=== PATIENT | female | born 1975 | race Caucasian/White ===

== ENCOUNTER 2016-04-20 09:37 | Inpatient (IN) | payer OTHER ==
[~2016-04-20 09:37] MED LIST: Buffered Lidocaine 1% SYRIN* 3 ML/SYR SYRINGE INTRADERM ONE
[2016-04-20] MEDS ORDERED: Lidocaine 2% PF* 10 ML AMP ONE (09:50)
[2016-04-20] MEDS ORDERED: Clindamycin 900 MG IVPREMIX(* 900 MG/50 ML SDV IV ONE (09:54)
[2016-04-20 10:26] LABS: UR Preg Kit Lot# 6060104
[2016-04-20 10:27] LABS: Manual Entry Verification AS; UR Preg Internal Control QC Line Present
[2016-04-20] MEDS ORDERED: Insulin REGULAR(*) 1 UNITS UNIT ONE ×2 (10:42→13:01)
[2016-04-20] MEDS ORDERED: Bupivacaine 0.5% SDV PF* 30 ML VIAL ONE (11:43)
[2016-04-20] MEDS ORDERED: Propofol* 10 MG/ML 20 ML BTL IV PUSH ONE (11:51)
[2016-04-20] MEDS ORDERED: fentaNYL* 50 MCG/ML 2 ML VIAL (100 MCG VIAL) ONE (11:51)
[2016-04-20] MEDS ORDERED: Lidocaine 2% PF* 5 ML VIAL ONE (11:51)
[2016-04-20] MEDS ORDERED: Ketorolac INJ* 30 MG/ML 1 ML VIAL IV PRN (12:13)
[2016-04-20] MEDS ORDERED: DiMENhydriNATE IV* 50 MG/ML VIAL IV PUSH PRN (12:13)
[2016-04-20] MEDS ORDERED: fentaNYL* 50 MCG/ML 2 ML VIAL (100 MCG VIAL) IV PRN (12:13)
[2016-04-20] MEDS ORDERED: diPHENhydraMINE IV* 50 MG/ML 1 ml VIAL (BENADRYL) IV PRN (12:48)
[2016-04-20] MEDS ORDERED: Acetaminophen TAB* 325 MG PO PRN (12:48)
[2016-04-20] MEDS ORDERED: traZODone TAB* 50 MG TAB PO PRN (12:48)
[2016-04-20] MEDS ORDERED: Ondansetron INJ* 2 MG/ML VIAL IV PRN (12:48)
[2016-04-20] MEDS ORDERED: clonazePAM TAB(*) 1 MG PO PRN (12:56)
[2016-04-20] MEDS ORDERED: Vancomycin(*) 0 MG in NS 0.9% 250 ML* 250 ML IVPB SCH (13:00)
[2016-04-20] MEDS ORDERED: Enoxaparin(*) 40 MG/0.4 ML SYR SUBCUT SCH (13:00)
[2016-04-20] MEDS ORDERED: Dextrose 50% Syringe 50 ML* 25 GM/50 ML SYRINGE IV PUSH PRN (13:19)
[2016-04-20] MEDS ORDERED: Nicotine Inhaler* 10 MG AMP INH PRN (14:09)
[2016-04-20] MEDS ORDERED: Vancomycin(*) 1,500 MG in NS 0.9% 250 ML* 250 ML IVPB ONE (15:15)
[2016-04-20] MEDS: Gabapentin CAP(*) 400 MG PO SCH ×2 (15:48→21:14)
[2016-04-20] MEDS: Morphine INJ* 2 MG/ML 1 ML SYRINGE IV PRN ×5 (15:48→23:49)
[2016-04-20] MEDS ORDERED: Mouth Piece, Nicotine* 1 EACH CARTRIDGE INH ONE (16:00)
--- NOTE | 2016-04-20 16:09 | CONS ---
CONSULTATION REPORT: DATE OF CONSULT: 04/20/16 PRIMARY CARE PROVIDER: Dr. Randolph. ATTENDING PHYSICIAN: Dr. Bolivar Ziegler (this report is being dictated by Tony Galeas NP) REQUESTING PHYSICIAN FOR CONSULTATION: Dr. Alexander. REASON FOR MEDICAL CONSULTATION: Evaluation and medical management of comorbid medical conditions. HISTORY OF PRESENT ILLNESS: I refer you to Dr. Alexander's H and P for further details. In short, Ms. Cannon is a 41-year-old female patient who sustained a right ankle fracture in October 2015, who underwent an ORIF for the fracture. Unfortunately, over 6 weeks after, she started developing cellulitis. She was treated but then she had recurrent cellulitis and wound infection. It was felt that the hardware most likely was seated and that is why she was getting recurrence of infections and it was felt by Dr. Alexander that the patient should have removal of hardware, of which she has finally elected to undergo today. The patient was brought into the OR today, underwent removal of hardware. She carries a history of diabetes, hypertension, hyperlipidemia, bipolar disorder, depression, anxiety, and we were asked to evaluate. She was evaluated in the postoperative setting. She states she is feeling well, her pain is controlled. She denies having any chest pain. She denies having any shortness of breath. Denies any nausea, vomiting, or any lightheadedness. She states that she did not take her medications this morning. She states that she feels hungry and that is really her only complaint at this point. Because of her medical complexity, we are asked to evaluate in consult. PAST MEDICAL HISTORY: Significant for, 1. Diabetes. 2. Hyperlipidemia. 3. Hypertension. 4. Bipolar. 5. Depression. 6. Anxiety. PAST SURGICAL HISTORY: She has had a right ankle ORIF. HOME MEDICATIONS: According to the preop list, include: 1. Klonopin 1 mg daily as needed. 2. Effexor 225 mg daily. 3. Crestor 10 mg daily. 4. Altace 10 mg p.o. daily. 5. Naproxen 500 mg p.o. b.i.d. as needed. 6. Glucophage 1000 mg p.o. b.i.d. 7. Advil 1000 mg 2 every 8 hours as needed. 8. Glimepiride 4 mg p.o. daily. 9. Neurontin 400 mg p.o. t.i.d. 10. Klonopin 2 mg in the morning. 11. Wellbutrin 150 mg in the morning and also with a 300 mg tablet in the morning. 12. Aspirin 81 mg daily. ALLERGIES TO MEDICATIONS: Include PENICILLIN and OXYCODONE. FAMILY HISTORY: Mother had a history of cancer, diabetes, and heart disease. Father had a history of renal cancer and diabetes. SOCIAL HISTORY: She is a pack a day smoker since the age of 14. Occasionally drinks alcohol. Surrogate decision maker is her sister. REVIEW OF SYSTEMS: There is no documented fever. She denied having any significant weight change. There was no double vision. There is no ear discharge. She denies having any rhinorrhea. There is no sore throat. No thyroid enlargement. She denied having any chest pain. There is no orthopnea. No nocturnal dyspnea. There is no abdominal pain. No nausea. No vomiting. No dysuria. No frequency. No loss of consciousness. No pruritus. No skin ulcerations. Review of 14 systems was completed, all others negative. PHYSICAL EXAMINATION: GENERAL: At this time, Ms. Cannon is a 41-year-old female patient. She is sitting in the PACU bed. She does not appear to be in any acute distress. VITAL SIGNS: Reveal a blood pressure of 139/89 with pulse of 94, respirations 20, O2 sat 98%, and temperature 97.5. HEENT: Head is atraumatic and normocephalic. Eyes; EOMs are intact. Sclerae anicteric and not pale. Throat; oral mucosa appears to be moist. No oropharyngeal erythema. NECK: Supple. LUNGS: Clear to auscultation bilaterally. No wheezes, rales, or rhonchi. HEART: Heart sounds S1 and S2. Regular rate and rhythm. No murmurs, rubs, or gallops were appreciated. ABDOMEN: Soft, flat and nontender. Bowel sounds are hypoactive. EXTREMITIES: Pulses are 2+ throughout. She is able to move all 4 extremities with the exception of the right lower extremity, as this is Jun wrapped and covered with a dressing around the right ankle. SKIN: Intact with the exception that she had an incision to the right lower extremity covered with an Jun dressing. NEUROLOGIC: She is awake, alert, and oriented x3. No gross focal deficits. LABORATORY DATA: Labs today are pending. I did not see any preop labs in the chart. I do not have any available to me, so we are waiting on getting these. She had the ankle x-ray on November 02, which shows trimalleolar fracture with medial displacement of the tibia . Old medical records reviewed. ASSESSMENT AND PLAN: Ms. Cannon is a 41-year-old female patient, coming into the orthopedic services today for removal of hardware. Hospitalist service was asked to evaluate for a consult, my recommendations at this point are: 1. Right lower extremity ankle infection with removal of hardware. I will defer the management of this to Orthopedics and Dr. Conde, who has been consulted by Ortho. 2. Diabetes. We will go ahead and put her on lispro sliding scale. Hold p.o. medications. 3. Hyperlipidemia. Continue Crestor. 4. Hypertension. Holding the ramipril for now. We may need to restart this tomorrow. Blood pressures are in the 130s, but we will hold it the first day postoperatively. 5. Bipolar disorder. Continue medications as prescribed. 6. Depression and anxiety. Continue mediations as prescribed. 7. DVT prophylaxis. Defer to the primary team. 8. Fluid, electrolytes, nutrition. Recommend a consistent carb diet. 9. Code status. Full code. TIME SPENT: Time spent on this consult was 60 minutes, of which greater than half the time was spent [id number] with the patient obtaining my history and physical; other half the time was spent going over the plan of care with the patient and implementing the plan of care. I discussed the plan of care with my attending; Dr. Ziegler; he is in agreement. TONY GALEAS NP CC: ARTIS Jason; Dr Alexander* [id number]/[facility] #: [id number] FLAKITA
[2016-04-20] MEDS ORDERED: Vancomycin per Pharmacy* NOTE FOLLOW UP PRN (16:16)
[2016-04-20 16:21] LABS: Hematocrit 38 % (35-47); Hemoglobin 12.5 g/dl (12.0-16.0); Mean Corpuscular HGB Conc 33 g/dl (31-36); Mean Corpuscular Hemoglobin 28 pg (27-31); Mean Corpuscular Volume 83 fL (80-97); Mean Platelet Volume 8 um3 (7.4-10.4); Red Blood Count 4.54 10^6/ul (4.0-5.4); Red Cell Distribution Width 14 % (10.5-15); White Blood Count 18.1 10^3/ul (3.5-10.8)
[2016-04-20 17:00] LABS: C Reactive Protein 8.48 mg/L (< 5.00); EGFR African American 132.6 (>60); EGFR Non-African American 103.1 (>60)
[2016-04-20] MEDS ORDERED: Ibuprofen TAB* 600 MG ONE (17:09)
[2016-04-20] MEDS ORDERED: HYDROmorphone TAB* 2 MG ONE (17:09)
[2016-04-20] MEDS: Atorvastatin* 20 MG TAB PO SCH (17:13)
[2016-04-20 17:17] LABS: Erythrocyte Sed Rate 38 mm/Hr (0-14)
[2016-04-20] MEDS: Insulin LISPRO* 1 UNITS UNIT SUBCUT SCH (17:26)
[2016-04-20] MEDS: metroNIDAZOLE IV 500 MG/100ML* 500 MG/100 ML BAG IVPB SCH (17:27)
[2016-04-20] MEDS: Ibuprofen TAB* 600 MG PO SCH ×2 (17:34→23:46)
[2016-04-20] MEDS ORDERED: metFORMIN* 500 MG TAB PO SCH (21:00)
[2016-04-20] MEDS: Docusate CAP* 100 MG PO SCH (21:14)
[2016-04-20] MEDS: HYDROmorphone TAB* 2 MG PO PRN (21:15)
[2016-04-20] MEDS: Vancomycin(*) 1,500 MG in NS 0.9% 250 ML* 250 ML IVPB SCH (23:52)
[2016-04-21] MEDS: HYDROmorphone TAB* 2 MG PO PRN ×4 (01:53→22:08)
[2016-04-21] MEDS: Morphine INJ* 2 MG/ML 1 ML SYRINGE IV PRN ×2 (02:16→04:36)
--- NOTE | 2016-04-21 02:19 | OP ---
DATE OF OPERATION: 04/20/16 - ROOM #339 DATE OF : 71 ATTENDING SURGEON: Rudolph Alexander MD BLOCKER POLISHING: Tamera Barron PA-C ANESTHESIOLOGIST: Rashel Flores MD ANESTHESIA: General PRE-OP DIAGNOSIS: Chronically infected right fibular plate. POST-OP DIAGNOSIS: Chronically infected right fibular plate with evidence of chronic osteomyelitis. OPERATIVE PROCEDURE: Removal of plate and debridement of right fibula. DESCRIPTION OF PROCEDURE: The patient was taken to the operating room, where we made a longitudinal incision over the distal fibular plate. There was a combination of sharp incision and electrocautery to allow visualization of all the screws. Most of the screws were loose and backed out quite easily. When the plate was removed, we noticed that there was chronic granulation tissue in all of the screw holes. These were curetted aggressively as well as the exterior portion of the fibula scraped. We used a 3 L pulsatile lavage. The hardware was sent to pathology, but also some of the bone scrapings as well as a local culture. We were able to close the wound with a single layer of Biosyn sutures. Compression dressing was applied. [id number]/[facility] #: [id number] [facility]
[2016-04-21] MEDS: Ibuprofen TAB* 600 MG PO SCH ×3 (06:08→18:11)
[2016-04-21] MEDS: metroNIDAZOLE IV 500 MG/100ML* 500 MG/100 ML BAG IVPB SCH ×3 (06:10→18:12)
[2016-04-21 06:47] LABS: Hematocrit 38 % (35-47); Hemoglobin 12.5 g/dl (12.0-16.0); Mean Corpuscular HGB Conc 33 g/dl (31-36); Mean Corpuscular Hemoglobin 28 pg (27-31); Mean Corpuscular Volume 85 fL (80-97); Mean Platelet Volume 8 um3 (7.4-10.4); Red Cell Distribution Width 14 % (10.5-15); White Blood Count 13.8 10^3/ul (3.5-10.8)
[2016-04-21 07:12] LABS: BUN/Creatinine Ratio 21.2 (8-20); Calcium 8.6 mg/dL (8.6-10.3); EGFR African American 125.7 (>60); EGFR Non-African American 97.7 (>60); Potassium 4.7 mmol/L (3.5-5.0)
[2016-04-21] MEDS ORDERED: Insulin GLARGINE(*) 1 UNITS UNIT SUBCUT ONE (07:20)
[2016-04-21] MEDS ORDERED: NS 0.9% 250 ML* 250 ML ONE (08:18)
[2016-04-21] MEDS: Venlafaxine EXT RELEASE CAP* 75 MG PO SCH (08:19)
[2016-04-21] MEDS: Enoxaparin(*) 40 MG/0.4 ML SYR SUBCUT SCH (08:19)
[2016-04-21] MEDS: clonazePAM TAB(*) 1 MG PO SCH (08:20)
[2016-04-21] MEDS: Aspirin EC Low Dose* 81 MG TAB.EC PO SCH (08:20)
[2016-04-21] MEDS: Gabapentin CAP(*) 400 MG PO SCH ×3 (08:20→20:59)
[2016-04-21] MEDS: BuPROPion XL* 150 MG TAB.XL PO SCH (08:20)
[2016-04-21] MEDS: Docusate CAP* 100 MG PO SCH ×2 (08:20→20:59)
[2016-04-21] MEDS: BuPROPion XL* 300 MG TAB.XL PO SCH (08:21)
[2016-04-21] MEDS: Vancomycin(*) 1,500 MG in NS 0.9% 250 ML* 250 ML IVPB SCH (08:35)
[2016-04-21] MEDS ORDERED: BuPROPion XL* 300 MG TAB.XL PO SCH (09:00)
[2016-04-21] MEDS ORDERED: CLONAZEPAM 2 MG PO SCH (09:00)
[2016-04-21] MEDS ORDERED: Venlafaxine ER (NF) 150 MG CAP.ER PO SCH (09:00)
[2016-04-21] MEDS ORDERED: Ramipril CAP* 10 MG PO SCH (09:00)
[2016-04-21] MEDS ORDERED: Glimepiride (NF) 2 MG TAB PO SCH (09:00)
[2016-04-21] MEDS: Insulin LISPRO* 1 UNITS UNIT SUBCUT SCH ×6 (09:20→18:12)
--- NOTE | 2016-04-21 09:51 | PN ---
Progress Note - Progress Note SOAP: Subjective: []Patient is seen OOB in chair. Pain well managed. Walked with PT this am without difficulty. Awaiting PIC line and ID consult. . Really wants to go home this afternoon if possible. Objective: [] Vital Signs Temp 97.6 F 04/21/16 07:49 Pulse 87 04/21/16 07:49 Resp 16 04/21/16 08:20 BP 114/56 04/21/16 07:49 Pulse Ox 99 04/21/16 07:49 Intake & Output 04/20/16 04/21/16 04/21/16 18:59 06:59 18:59 Intake Total 2220 3396 Output Total 1200 Balance 2220 2196 Weight 202 lb 12.8 oz Intake: IV Fluids 900 817 LR 900 817 IVPB 559 ABX - VANCOMYCIN 559 Oral 1320 2020 Output: Urine 1200 Other: Estimated Void Medium Medium # Voids 1 1 1 Laboratory Results - last 24 hr 04/20/16 04/20/16 04/20/16 09:46 10:16 10:19 WBC RBC Hgb Hct MCV MCH MCHC RDW Plt Count MPV Neut % (Auto) Lymph % (Auto) [place] % (Auto) Eos % (Auto) Baso % (Auto) Absolute Neuts (auto) Absolute Lymphs (auto) Absolute Monos (auto) Absolute Eos (auto) Absolute Basos (auto) Absolute Nucleated RBC Nucleated RBC % ESR Sodium Potassium Chloride Carbon Dioxide Anion Gap BUN Creatinine Est GFR ( Amer) Est GFR (Non-Af Amer) BUN/Creatinine Ratio Glucose POC Glucose (mg/dL) 317 H Calcium C-Reactive Protein Urine Test Negative HIV 1&2 Antibody Nonreactive 04/20/16 04/20/16 04/20/16 11:45 12:47 16:10 WBC 18.1 H RBC 4.54 Hgb 12.5 Hct 38 MCV 83 MCH 28 MCHC 33 RDW 14 Plt Count 320 MPV 8 Neut % (Auto) 64.1 Lymph % (Auto) 25.1 [place]haw % (Auto) 5.1 Eos % (Auto) 4.7 Baso % (Auto) 1.0 Absolute Neuts (auto) 11.6 H Absolute Lymphs (auto) 4.5 Absolute Monos (auto) 0.9 H Absolute Eos (auto) 0.8 H Absolute Basos (auto) 0.2 Absolute Nucleated RBC 0.03 Nucleated RBC % 0.1 ESR 38 H Sodium Potassium Chloride Carbon Dioxide Anion Gap BUN Creatinine Est GFR ( Amer) Est GFR (Non-Af Amer) BUN/Creatinine Ratio Glucose POC Glucose (mg/dL) 286 H 261 H Calcium C-Reactive Protein Urine Test HIV 1&2 Antibody 04/20/16 04/20/16 04/21/16 16:10 17:21 05:57 WBC RBC Hgb Hct MCV MCH MCHC RDW Plt Count MPV Neut % (Auto) Lymph % (Auto) [place] % (Auto) Eos % (Auto) Baso % (Auto) Absolute Neuts (auto) Absolute Lymphs (auto) Absolute Monos (auto) Absolute Eos (auto) Absolute Basos (auto) Absolute Nucleated RBC Nucleated RBC % ESR Sodium 131 L Potassium 4.7 Chloride 98 L Carbon Dioxide 28 Anion Gap 5 BUN 13 14 Creatinine 0.63 0.66 Est GFR ( Amer) 132.6 125.7 Est GFR (Non-Af Amer) 103.1 97.7 BUN/Creatinine Ratio 21.2 H Glucose 329 H POC Glucose (mg/dL) 293 H Calcium 8.6 C-Reactive Protein 8.48 H Urine Test HIV 1&2 Antibody 04/21/16 04/21/16 05:57 07:44 WBC 13.8 H RBC 4.50 Hgb 12.5 Hct 38 MCV 85 MCH 28 MCHC 33 RDW 14 Plt Count 298 MPV 8 Neut % (Auto) 53.5 Lymph % (Auto) 33.8 [place]haw % (Auto) 6.2 Eos % (Auto) 5.7 Baso % (Auto) 0.8 Absolute Neuts (auto) 7.4 Absolute Lymphs (auto) 4.7 Absolute Monos (auto) 0.9 H Absolute Eos (auto) 0.8 H Absolute Basos (auto) 0.1 Absolute Nucleated RBC 0.01 Nucleated RBC % 0 ESR Sodium Potassium Chloride Carbon Dioxide Anion Gap BUN Creatinine Est GFR ( Amer) Est GFR (Non-Af Amer) BUN/Creatinine Ratio Glucose POC Glucose (mg/dL) 329 H Calcium C-Reactive Protein Urine Test HIV 1&2 Antibody Microbiology 04/20/16 12:12 Skin and Soft Tissue MRSA/MSSA (PCR - Final Wound - Ankle Right Mrsa Negative S.aureus Positive Gram Stain - Final Right ankle dressing is C/D/I toes pink and warm, moving well neuro intact calf non tender and soft Assessment: []s/p Removal infected hardware with curretage of distal fibula right ankle POD #1 Plan: []PT/OT WBAT RLE Await PIC line Await ID consult Home when all home health issues /IV ABX are in place for discharge.
--- NOTE | 2016-04-21 12:21 | PN ---
Subjective Date of Service: 04/21/16 Interval History: Patient seen and examined at bedside. She denies fever/chills, CP, SOB, n/v. She reports adequate pain control and states, "I'm ready to get out of here." She recognizes that she still needs to see ID and have a PICC line placed. We discussed her A1c, which is 11. She states it was "around 8" last time it was checked. She does not check BG at home. She reports she used to be on Novolog and Victoza, but this was discontinued when she lost 50 lbs. We discussed the importance of glucose control, especially with an acute infection and in the post-operative period. She is from [place] but now lives in [place] and will not be able to f/u with [facility] as an outpatient. However, she is agreeable to starting Lantus insulin and following up with her PCP. She was also advised to check her BG at home and keep a record for her physician. Family History: Unchanged from Admission Social History: Unchanged from Admission Past Medical History: Unchanged from Admission Objective Active Medications: Acetaminophen (Tylenol Tab*) 650 mg PO Q4H PRN PRN Reason: PAIN OR TEMPERATURE [facility]ir[facility] Ec Low Dose*) [facility] Last Admin: 04/21/16 08:20 Dose: 81 mg Atorvastatin Calcium (Lipitor*) 20 mg PO QPM [facility] PRN Reason: Protocol Last Admin: 04/20/16 17:13 Dose: 20 mg Bupropion HCl (Wellbutrin Xl *) [facility]N Reason: Protocol Last Admin: 04/21/16 08:20 Dose: 150 mg Bupropion HCl (Bupropion Xl*) [facility] Last Admin: 04/21/16 08:21 Dose: 300 mg Clonazepam (Klonopin Tab(*)) 1 mg PO DAILY PRN PRN Reason: ANXIETY Clonazepam (Klonopin Tab(*)) [facility] Last Admin: 04/21/16 08:20 Dose: 2 mg Dextrose (D50w Syringe 50 Ml*) 12.5 gm IV PUSH .FOR FS < 60 - SS PRN PRN Reason: FS < 60 Diphenhydramine HCl (Benadryl Iv*) 25 mg IV Q6H PRN PRN Reason: itching Docusate Sodium (Colace Cap*) 100 mg PO BID [facility] Last Admin: 04/21/16 08:20 Dose: 100 mg Enoxaparin Sodium (Lovenox(*)) 40 mg SUBCUT Q24H [facility] Last Admin: 04/21/16 08:19 Dose: 40 mg Gabapentin (Neurontin Cap(*)) 400 mg PO TID [facility] Last Admin: 04/21/16 08:20 Dose: 400 mg Hydromorphone HCl (Dilaudid Tab*) 2 mg PO Q4H PRN PRN Reason: PAIN - SEVERE Last Admin: 04/21/16 06:09 Dose: 2 mg Lactated Ringer's (Lactated Ringers 1000 Ml Bag*) 1,000 mls @ 75 mls/hr IV PER RATE [facility] Metronidazole/Sodium Chloride (Flagyl 500 Mg Ivpb*) 500 mg in 100 mls @ 100 mls /hr IVPB 0600,1800 [facility] Last Admin: 04/21/16 07:12 Dose: Not Given Vancomycin HCl 1,500 mg/ (Sodium Chloride) 250 mls @ 166.667 mls/hr IVPB Q8H [facility] Last Admin: 04/21/16 08:35 Dose: 166.667 mls/hr Ibuprofen (Motrin Tab*) 600 mg PO Q6HR [facility] Last Admin: 04/21/16 11:48 Dose: 600 mg Insulin Human Lispro (Humalog*) 0 units SUBCUT [facility] PRN Reason: Protocol Last Admin: 04/21/16 09:20 Dose: 12 unit Insulin Human Lispro (Humalog*) 0 units SUBCUT [facility] PRN Reason: Protocol Last Admin: 04/21/16 09:21 Dose: 4 units Morphine Sulfate (Morphine Inj (Syringe)*) 2 mg IV Q2H PRN PRN Reason: PAIN Last Admin: 04/21/16 04:36 Dose: 2 mg Nicotine (Nicotine Inhaler*) 10 mg INH Q2H PRN PRN Reason: CRAVING Last Admin: 04/20/16 16:15 Dose: 10 mg Ondansetron HCl (Zofran Inj*) 4 mg IV Q6H PRN PRN Reason: nausea Pharmacy Consult (Vancomycin Per Pharmacy*) 1 note FOLLOW UP . PRN PRN Reason: PER PROTOCOL Pharmacy Profile Note (Vancomycin Trough Check) 1 note FOLLOW UP 1600 ONE Stop: 04/21/16 16:01 Trazodone HCl (Desyrel Tab*) 25 mg PO BEDTIME PRN PRN Reason: insomnia Venlafaxine HCl (Effexor Xr Cap*) [facility] Last Admin: 04/21/16 08:19 Dose: 225 mg Vital Signs 04/20/16 04/20/16 04/20/16 12:43 12:45 12:50 Temperature 98.1 F Pulse Rate 100 94 104 Respiratory 18 20 18 Rate Blood Pressure 153/77 150/85 143/79 (mmHg) O2 Sat by Pulse 97 95 97 Oximetry 04/20/16 04/20/16 04/20/16 12:55 13:00 13:15 Temperature 97.5 F Pulse Rate 93 92 94 Respiratory 20 20 18 Rate Blood Pressure 137/87 137/83 137/85 (mmHg) O2 Sat by Pulse 97 99 99 Oximetry 04/20/16 04/20/16 04/20/16 13:29 14:20 15:07 Temperature 97.7 F 98.1 F Pulse Rate 94 91 91 Respiratory 20 18 16 Rate Blood Pressure 139/89 132/80 128/77 (mmHg) O2 Sat by Pulse 98 100 99 Oximetry 04/20/16 04/20/16 04/20/16 15:48 16:40 17:11 Temperature 98.6 F Pulse Rate 100 Respiratory 16 16 16 Rate Blood Pressure 133/74 (mmHg) O2 Sat by Pulse 100 Oximetry 04/20/16 04/20/16 04/20/16 17:31 18:18 18:31 Temperature 98.1 F Pulse Rate 104 Respiratory 16 18 16 Rate Blood Pressure 146/77 (mmHg) O2 Sat by Pulse 97 Oximetry 04/20/16 04/20/16 04/20/16 19:28 19:41 20:18 Temperature 98.0 F Pulse Rate 89 Respiratory 16 16 14 Rate Blood Pressure 128/72 (mmHg) O2 Sat by Pulse 98 Oximetry 04/20/16 04/20/16 04/20/16 20:28 21:14 21:15 Temperature Pulse Rate Respiratory 16 16 16 Rate Blood Pressure (mmHg) O2 Sat by Pulse Oximetry 04/20/16 04/20/16 04/20/16 21:34 22:34 23:14 Temperature Pulse Rate Respiratory 16 16 16 Rate Blood Pressure (mmHg) O2 Sat by Pulse Oximetry 04/20/16 04/20/16 04/20/16 23:15 23:49 23:59 Temperature 97.6 F Pulse Rate 88 Respiratory 16 16 18 Rate Blood Pressure 126/79 (mmHg) O2 Sat by Pulse 97 Oximetry 04/21/16 04/21/16 04/21/16 00:00 00:49 01:53 Temperature Pulse Rate Respiratory 16 16 Rate Blood Pressure (mmHg) O2 Sat by Pulse 97 Oximetry 04/21/16 04/21/16 04/21/16 02:16 03:16 03:27 Temperature 97.8 F Pulse Rate 88 Respiratory 16 16 16 Rate Blood Pressure 121/72 (mmHg) O2 Sat by Pulse 97 Oximetry 04/21/16 04/21/16 04/21/16 03:53 04:36 05:36 Temperature Pulse Rate Respiratory 16 16 16 Rate Blood Pressure (mmHg) O2 Sat by Pulse Oximetry 04/21/16 04/21/16 04/21/16 06:09 07:35 07:49 Temperature 97.6 F Pulse Rate 87 Respiratory 16 16 18 Rate Blood Pressure 114/56 (mmHg) O2 Sat by Pulse 99 Oximetry 04/21/16 04/21/16 04/21/16 08:09 08:20 10:05 Temperature Pulse Rate Respiratory 16 16 16 Rate Blood Pressure (mmHg) O2 Sat by Pulse Oximetry Oxygen Devices in Use Now: None Appearance: Female patient, lying in bed, somewhat anxious and restless, but otherwise not in acute distress. Cooperative with care. Eyes: PERRLA Ears/Nose/Mouth/Throat: Clear Oropharnyx, Mucous Membranes Moist Neck: NL Appearance and Movements; NL JVP Respiratory: Symmetrical Chest Expansion and Respiratory Effort, Clear to Auscultation Cardiovascular: NL Sounds; No Murmurs; No JVD, RRR Abdominal: NL Sounds; No Tenderness; No Distention Extremities: - - RLE biju wrap c/d/i - incision not visualized Neurological: Alert and Oriented x 3 Lines/Tubes/Other Access: Clean, Dry and Intact Peripheral IV Nutrition: Taking PO's Result Diagrams: 04/21/16 05:57 04/21/16 05:57 Microbiology and Other Data: Microbiology 04/20/16 12:12 Anaerobic Culture - Preliminary Wound - Ankle Right No Growth Day 1 Skin and Soft Tissue MRSA/MSSA (PCR - Final Mrsa Negative S.aureus Positive Gram Stain - Final Wound Culture - Preliminary Staphylococcus Aureus Assess/Plan/Problems-Billing Assessment: Ms. Cannon is a 41 yo female with a PMH of DM, HLD, HTN, depression and anxiety , and bipolar disorder who was admitted electively on 04/20/16 for removal of likely infected right ankle hardware placed s/p ORIF in 10/2015 and with recurrent cellulitis. - Patient Problems (1) Status post hardware removal Code(s): Z98.890 - OTHER SPECIFIED POSTPROCEDURAL STATES Comment: With curretage of distal fibula POD #1, management per orthopedics Awaiting ID consult Plan for PICC placement and outpatient IV antibiotics (2) Diabetes mellitus Code(s): E11.9 - TYPE 2 DIABETES MELLITUS WITHOUT COMPLICATIONS Comment: Fasting BG 329 this AM, HgbA1c 11.6 Patient only on metformin and does not check BG at home Patient recommended to check fasting BG qAM and PM BG and keep record Start Lantus 10 units qPM and f/u with PCP for further titration of Lantus Material Requisitioner consult if patient remains in hospital past today (3) HTN (hypertension) Code(s): I10 - ESSENTIAL (PRIMARY) HYPERTENSION Comment: Normotensive. Resume ramipril tomorrow. (4) HLD (hyperlipidemia) Code(s): E78.5 - HYPERLIPIDEMIA, UNSPECIFIED Comment: Continue statin. (5) Depression with anxiety Comment: Stable, continue venlafaxine, bupropion, and clonazepam. (6) Bipolar disorder Comment: Stable, continue bupropion. (7) DVT prophylaxis Code(s): VGQ1976 - Comment: Per ortho SQ enoxaparin Status and Disposition: Inpatient admission. Dispo per Orthopedics. Hospital medicine co-management.
[2016-04-21] MEDS ORDERED: Vancomycin Trough Check NOTE FOLLOW UP ONE (16:00)
[2016-04-21] MEDS ORDERED: Insulin GLARGINE(*) 1 UNITS UNIT SUBCUT SCH (18:00)
[2016-04-21] MEDS: Atorvastatin* 20 MG TAB PO SCH (18:11)
--- NOTE | 2016-04-21 20:20 | CONS ---
CONSULTATION REPORT: DATE OF CONSULT: 04/21/16 REQUESTING PHYSICIAN: Dr. Alexander. CONSULTING SERVICE: Infectious Disease. REASON FOR CONSULT: Right ankle hardware infection. IMPRESSION: 1. Right ankle bimalleolar fracture, status post open reduction internal fixation, 11/11/15, since then, has had a number of episodes of right lateral ankle cellulitis and wound, which never healed, was treated as an outpatient with IV antibiotics in [place] and now has had hardware removal, there was purulent material culture at the time of surgery, which was growing Staphylococcus aureus, it is methicillin-resistant Staphylococcus aureus negative and Staphylococcus aureus positive by PCR. She also grew that December 2015 from a wound culture from the ankle. 2. Chronic osteomyelitis, right ankle, fibula, hardware associated. 3. Type 2 diabetes. 4. Obesity. 5. Bipolar disorder. 6. PENICILLIN allergy caused throat swelling, has tolerated cephalosporins in the past. RECOMMENDATION: Stop vancomycin and Flagyl. Start Ancef 2 g IV every 8 hours with plan for another 6 weeks of IV antibiotics, weekly CBC, CMP, CRP. I discussed with her side effects to watch for including fever, rash, or diarrhea. Given the chronicity of this infection, she may need a longer course of oral antibiotics following the IV treatment. HISTORY OF PRESENT ILLNESS: This is a 41-year-old woman with diabetes admitted with right ankle infection. She had a fracture in December, had open reduction and internal fixation, the medial aspect of the ankle healed up well, the lateral aspect never healed. There was a wound that occasionally drained serous or purulent fluid. She developed cellulitis off and on over the course of the next 3 or 4 months. She has had a couple of courses of oral antibiotics , grew Staph aureus, methicillin sensitive, December 2015, from a wound swab. She was seen by Dr. Flores in [place] and had IV antibiotics for 6 weeks, then had recurrence of her symptoms once the antibiotic stopped. She was admitted yesterday and had hardware removed from the fibula where there was purulent material found and hardware loosening. A Gram stain was taken that showed 1+ gram positive cocci. The PCR was Staph aureus positive, MRSA negative , the culture is growing Staph aureus. She has had no fevers, chills, or sweats. The ankle pain is about the same. She has not had other recurrent infections or need for hospitalization due to infection in the past. PAST MEDICAL HISTORY: 1. Type 2 diabetes. 2. Obesity. 3. Bipolar disorder. 4. Hypertension. 5. Anxiety. 6. Hyperlipidemia. 7. Right ankle fracture, status post bimalleolar open reduction internal fixation, October 2015. MEDICATIONS: 1. Tylenol. 2. Aspirin. 3. Lipitor. 4. Bupropion. 5. Enoxaparin. 6. Ibuprofen. 7. Insulin glargine. 8. Nicotine inhaler. 9. Ramipril. 10. Vancomycin 1500 mg every 8 hours. 11. Metronidazole 500 mg every 12 hours. 12. Trazodone. ALLERGIES: PENICILLIN caused throat swelling, OXYCODONE is listed. FAMILY HISTORY: Mother had cancer, diabetes, and heart disease. Her father had kidney cancer and diabetes. SOCIAL HISTORY: She lives in [place]. She is a [employer]. She has no travel or sick contacts. No injection drugs. REVIEW OF SYSTEMS: A 12-point review of systems was negative except as noted above. PHYSICAL EXAM: Vital Signs: Temperature is 36.6, heart rate 90, respiratory rate 18, blood pressure 115/56, O2 sat 97% on room air. In general, she is not in distress. She is not diaphoretic. Neurologically, she is awake and oriented x3. Follows all commands. Moves all extremities. HEENT: There is no conjunctival hemorrhage. Oropharynx without lesions. Neck is supple without nuchal rigidity. Lymph Nodes: There is no cervical, supraclavicular, inguinal, axillary, or epitrochlear lymphadenopathy. Heart has regular rate and rhythm without murmurs, rubs, or gallops. Lungs are clear to auscultation bilaterally. Abdomen is soft, nontender, nondistended. There are bowel sounds present. Skin: There is no rash or splinter hemorrhages. Musculoskeletal: There is no spine tenderness to palpation. The right foot is casted. LABORATORY DATA: White blood cell count 13 down from 18, hemoglobin 12, platelets 298. Creatinine 0.6. CRP 9. HIV antibody was negative. Urine test was negative. Please see impressions and recommendations as outlined above, which I have discussed with Dr. Alexander. Thanks for asking me to see Ms. Cannon in consultation. [id number]/[facility] #: [id number] [facility]
[2016-04-22] MEDS: Ibuprofen TAB* 600 MG PO SCH ×3 (00:31→11:41)
[2016-04-22] MEDS: metroNIDAZOLE IV 500 MG/100ML* 500 MG/100 ML BAG IVPB SCH (05:53)
[2016-04-22] MEDS ORDERED: Ramipril CAP* 10 MG PO SCH (09:00)
[2016-04-22] MEDS: Gabapentin CAP(*) 400 MG PO SCH (09:16)
[2016-04-22] MEDS: clonazePAM TAB(*) 1 MG PO SCH (09:16)
[2016-04-22] MEDS: Venlafaxine EXT RELEASE CAP* 75 MG PO SCH (09:16)
[2016-04-22] MEDS: Insulin LISPRO* 1 UNITS UNIT SUBCUT SCH ×4 (09:17→13:07)
[2016-04-22] MEDS: Aspirin EC Low Dose* 81 MG TAB.EC PO SCH (09:17)
[2016-04-22] MEDS: Docusate CAP* 100 MG PO SCH (09:17)
[2016-04-22] MEDS: Enoxaparin(*) 40 MG/0.4 ML SYR SUBCUT SCH (09:18)
--- NOTE | 2016-04-22 09:55 | PN ---
Progress Note - Progress Note SOAP: Subjective: DOS: 04/22/16 CC: ankle infection HPI: 41 yo woman with right ankle tib/fib fx s/p ORIF Oct 2015 then lateral ankle infection had IV antibiotics in [place] and then recurrence now admitted for fibula hardware removal. Tolerated it well. No fever, rash, or diarrhea. Objective: [] Vital Signs Temp 36.7 C 04/22/16 07:44 Pulse 93 04/22/16 07:44 Resp 16 04/22/16 09:16 BP 134/72 04/22/16 07:44 Pulse Ox 100 04/22/16 07:44 Intake & Output 04/21/16 04/22/16 04/22/16 18:59 06:59 18:59 Intake Total 600 2165 500 Output Total 2975 Balance 600 -810 500 Intake: IV Fluids 5 LR 5 IVPB 100 Flagyl 100 Oral 600 2060 500 Output: Urine 2975 Other: # Voids 2 Gen:No distress Neuro:AAOx3 CN 2-12 intact HEENT:PERRL, MMM Neck:supple Heart:RRR no murmur Lungs:CTA BL Abd:+BS NTND soft Skin: no rash MSK: R ankle casted Laboratory Results - last 24 hr 04/21/16 04/21/16 04/21/16 05:57 11:49 17:28 POC Glucose (mg/dL) 270 H 209 H Hemoglobin A1c 11.6 H 04/22/16 07:16 POC Glucose (mg/dL) 310 H Hemoglobin A1c Assessment: 1. 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 T2 Diabetes, poorly controlled 3. obesity 4. PCN allergy Plan: 1. ancef 2 gm IV Q8hrs for 40 more days, weekly cbc, cmp, crp ordered, picc today, fu with me 1-2 weeks, my office will call. 35 minutes floor time >50% with patient counseling regarding antibiotic treatment, side effects, lab monitoring, and picc troubleshooting. All questions answered.
[2016-04-22] MEDS: BuPROPion XL* 150 MG TAB.XL PO SCH (10:01)
[2016-04-22] MEDS: BuPROPion XL* 300 MG TAB.XL PO SCH (10:01)
[2016-04-22] MEDS ORDERED: ceFAZolin 2 GM PREMIX(*) 2 GM/50 ML BAG IVPB SCH (11:00)
--- NOTE | 2016-04-22 11:01 | PN ---
Progress Note - Progress Note SOAP: Subjective: []Patient seen at bedside. Doing well. Pain managed with Ibuprofen in the day, 2mg dilaudid at night. Waiting for PIC nurse today and looking forward to discharge thereafter. Objective: [] Vital Signs Temp 98.1 F 04/22/16 07:44 Pulse 93 04/22/16 07:44 Resp 16 04/22/16 09:16 BP 134/72 04/22/16 07:44 Pulse Ox 100 04/22/16 07:44 Intake & Output 04/21/16 04/22/16 04/22/16 18:59 06:59 18:59 Intake Total 600 2165 500 Output Total 2975 Balance 600 -810 500 Intake: IV Fluids 5 LR 5 IVPB 100 Flagyl 100 Oral 600 2060 500 Output: Urine 2975 Other: # Voids 2 Laboratory Results - last 24 hr 04/21/16 04/21/16 04/21/16 05:57 11:49 17:28 POC Glucose (mg/dL) 270 H 209 H Hemoglobin A1c 11.6 H 04/22/16 07:16 POC Glucose (mg/dL) 310 H Hemoglobin A1c Microbiology 04/20/16 12:12 Anaerobic Culture - Preliminary Wound - Ankle Right Skin and Soft Tissue MRSA/MSSA (PCR - Final Mrsa Negative S.aureus Positive Gram Stain - Final Wound Culture - Final Staphylococcus Aureus Right ankle dressings removed, moderate bloody drainage on deep dressings No active wound drainage mild edema, no erythema calf non tender neuro intact New telfa, 4x4s and MICHI applied to right ankle. Assessment: []s/p removal infected distal fibular hardware POD #2 Plan: []Discharge home this afternoon after PIC placement Receiving a dose of Cefazolin right now@1100, q 8hrs moving forward for [address] Conde. WBAT right LE Ibuprofen and Dilaudid for pain on discharge follow up with Dr. Alexander 10-14 days.
--- NOTE | 2016-04-22 11:04 | PN ---
Subjective Date of Service: 04/22/16 Interval History: Patient seen and examined at bedside. She is in good spirits, denies fever/ chills, CP, SOB, abd pain. Reports good pain control s/p hardware removal and states she has been up walking with PT. We discussed her elevated BG. She has used insulin in the past and is in agreement to start Lantus qPM at home. She reports a good relationship with her PCP, Dr. Ra Randolph, and will call and set up an appointment with him to help continue management of her blood sugars. She knows to keep a log of her fasting BG in the morning and before bed. She asked for a script for a new glucometer, test strips, and needles, which has been sent to her pharmacy [facility] on [facility]. I have also sent the Rx for Lantus Pen and needles. Family History: Unchanged from Admission Social History: Unchanged from Admission Past Medical History: Unchanged from Admission Objective Active Medications: Acetaminophen (Tylenol Tab*) 650 mg PO Q4H PRN PRN Reason: PAIN OR TEMPERATURE Aspirin (Aspirin Ec Low Dose*) [facility] Last Admin: 04/22/16 09:17 Dose: 81 mg Atorvastatin Calcium (Lipitor*) 20 mg PO QPM [facility] PRN Reason: Protocol Last Admin: 04/21/16 18:11 Dose: 20 mg Bupropion HCl (Wellbutrin Xl *) 150 mg PO QAM [facility] PRN Reason: Protocol Last Admin: 04/22/16 10:01 Dose: 150 mg Bupropion HCl (Bupropion Xl*) 300 mg PO [facility] Last Admin: 04/22/16 10:01 Dose: 300 mg Clonazepam (Klonopin Tab(*)) 1 mg PO DAILY PRN PRN Reason: ANXIETY Clonazepam (Klonopin Tab(*)) 2 mg PO [facility] Last Admin: 04/22/16 09:16 Dose: 2 mg Dextrose (D50w Syringe 50 Ml*) 12.5 gm IV PUSH .FOR FS < 60 - SS PRN PRN Reason: FS < 60 Diphenhydramine HCl (Benadryl Iv*) 25 mg IV Q6H PRN PRN Reason: itching Docusate Sodium (Colace Cap*) 100 mg PO BID [facility] Last Admin: 04/22/16 09:17 Dose: 100 mg Enoxaparin Sodium (Lovenox(*)) 40 mg SUBCUT Q24H [facility] Last Admin: 04/22/16 09:18 Dose: 40 mg Gabapentin (Neurontin Cap(*)) 400 mg PO TID [facility] Last Admin: 04/22/16 09:16 Dose: 400 mg Hydromorphone HCl (Dilaudid Tab*) 2 mg PO Q4H PRN PRN Reason: PAIN - SEVERE Last Admin: 04/21/16 22:08 Dose: 2 mg Lactated Ringer's (Lactated Ringers 1000 Ml Bag*) 1,000 mls @ 75 mls/hr IV PER RATE [facility] Metronidazole/Sodium Chloride (Flagyl 500 Mg Ivpb*) 500 mg in 100 mls @ 100 mls /hr IVPB 0600,1800 [facility] Last Admin: 04/22/16 05:53 Dose: 100 mls/hr Cefazolin Sodium/Dextrose (Kefzol Premix(*)) 2 gm in 50 mls @ 100 mls/hr IVPB Q8H [facility] Last Admin: 04/22/16 10:53 Dose: 100 mls/hr Ibuprofen (Motrin Tab*) 600 mg PO Q6HR [facility] Last Admin: 04/22/16 05:56 Dose: 600 mg Insulin Glargine (Lantus(*)) 25 units SUBCUT QPM [facility] Insulin Human Lispro (Humalog*) 0 units SUBCUT AC [facility] PRN Reason: Protocol Last Admin: 04/22/16 09:17 Dose: 12 unit Insulin Human Lispro (Humalog*) 0 units SUBCUT AC [facility] PRN Reason: Protocol Last Admin: 04/22/16 09:17 Dose: 3 units Morphine Sulfate (Morphine Inj (Syringe)*) 2 mg IV Q2H PRN PRN Reason: PAIN Last Admin: 04/21/16 04:36 Dose: 2 mg Nicotine (Nicotine Inhaler*) 10 mg INH Q2H PRN PRN Reason: CRAVING Last Admin: 04/20/16 16:15 Dose: 10 mg Ondansetron HCl (Zofran Inj*) 4 mg IV Q6H PRN PRN Reason: nausea Ramipril (Altace Cap*) 10 mg PO DAILY [facility] Last Admin: 04/22/16 09:16 Dose: 10 mg Trazodone HCl (Desyrel Tab*) 25 mg PO BEDTIME PRN PRN Reason: insomnia Last Admin: 04/21/16 22:06 Dose: 25 mg Venlafaxine HCl (Effexor Xr Cap*) 225 mg PO QAM [facility] Last Admin: 04/22/16 09:16 Dose: 225 mg Vital Signs 04/21/16 04/21/16 04/21/16 12:32 13:31 15:18 Temperature 97.9 F 98.4 F Pulse Rate 89 99 Respiratory 18 16 16 Rate Blood Pressure 115/56 136/74 (mmHg) O2 Sat by Pulse 97 98 Oximetry 04/21/16 04/21/16 04/21/16 15:31 18:11 18:49 Temperature Pulse Rate Respiratory 15 16 Rate Blood Pressure (mmHg) O2 Sat by Pulse 98 Oximetry 04/21/16 04/21/16 04/21/16 20:06 20:11 20:59 Temperature 97.6 F Pulse Rate 100 Respiratory 14 16 16 Rate Blood Pressure 137/71 (mmHg) O2 Sat by Pulse 98 Oximetry 04/21/16 04/21/16 04/21/16 21:06 22:08 22:59 Temperature Pulse Rate Respiratory 16 16 16 Rate Blood Pressure (mmHg) O2 Sat by Pulse Oximetry 04/21/16 04/22/16 04/22/16 23:23 00:08 00:39 Temperature 97.5 F Pulse Rate 95 Respiratory 16 16 Rate Blood Pressure 121/66 (mmHg) O2 Sat by Pulse 92 97 Oximetry 04/22/16 04/22/16 04/22/16 00:42 03:26 07:44 Temperature 97.4 F 98.1 F Pulse Rate 91 93 Respiratory 18 Rate Blood Pressure 121/70 134/72 (mmHg) O2 Sat by Pulse 97 92 100 Oximetry 04/22/16 09:16 Temperature Pulse Rate Respiratory 14 Rate Blood Pressure (mmHg) O2 Sat by Pulse Oximetry Oxygen Devices in Use Now: None Appearance: Female patient, lying in bed, in NAD Eyes: PERRLA Ears/Nose/Mouth/Throat: Clear Oropharnyx, Mucous Membranes Moist Neck: NL Appearance and Movements; NL JVP Respiratory: Symmetrical Chest Expansion and Respiratory Effort, Clear to Auscultation Cardiovascular: NL Sounds; No Murmurs; No JVD, RRR Abdominal: NL Sounds; No Tenderness; No Distention Extremities: - Skin: No Rash or Ulcers Neurological: Alert and Oriented x 3 Lines/Tubes/Other Access: Clean, Dry and Intact Peripheral IV Nutrition: Taking PO's Result Diagrams: 04/21/16 05:57 04/21/16 05:57 Microbiology and Other Data: Microbiology 04/20/16 12:12 Anaerobic Culture - Preliminary Wound - Ankle Right No Growth Day 1 Skin and Soft Tissue MRSA/MSSA (PCR - Final Mrsa Negative S.aureus Positive Gram Stain - Final Wound Culture - Preliminary Staphylococcus Aureus Assess/Plan/Problems-Billing Assessment: Ms. Cannon is a 41 yo female with a PMH of DM, HLD, HTN, depression and anxiety , and bipolar disorder who was admitted electively on 04/20/16 for removal of likely infected right ankle hardware placed s/p ORIF in 10/2015 and with recurrent cellulitis. - Patient Problems (1) Status post hardware removal Code(s): Z98.890 - OTHER SPECIFIED POSTPROCEDURAL STATES Comment: With curretage of distal fibula POD #2, management per orthopedics ID consult Plan for PICC placement and outpatient IV antibiotics (2) Diabetes mellitus Code(s): E11.9 - TYPE 2 DIABETES MELLITUS WITHOUT COMPLICATIONS Comment: BG 200s-300s, HgbA1c 11.6 Plan for continuation of metformin and to start Lantus in the evenings. Patient will check fasting BG qAM and PM BG and keep record Lantus 25 units qPM and f/u with PCP for further titration of Lantus (3) HTN (hypertension) Code(s): I10 - ESSENTIAL (PRIMARY) HYPERTENSION Comment: Normotensive. Continue ramipril. (4) HLD (hyperlipidemia) Code(s): E78.5 - HYPERLIPIDEMIA, UNSPECIFIED Comment: Continue statin. (5) Depression with anxiety Comment: Stable, continue venlafaxine, bupropion, and clonazepam. (6) Bipolar disorder Comment: Stable, continue bupropion. (7) DVT prophylaxis Code(s): STC2218 - Comment: Per ortho SQ enoxaparin Status and Disposition: Inpatient admission. Dispo per Orthopedics. Hospital medicine co-management.
[2016-04-22 11:58] VITALS: BP 132/73
[2016-04-22] MEDS ORDERED: Insulin GLARGINE(*) 1 UNITS UNIT SUBCUT SCH (18:00)
--- NOTE | 2016-04-23 05:17 | DS ---
DISCHARGE SUMMARY: DATE OF ADMISSION: 04/20/16 DATE OF DISCHARGE: 04/22/16 ATTENDING PHYSICIAN: Rudolph Alexander MD ADMISSION DIAGNOSIS: Infected distal fibular plate, right ankle, status post open reduction internal fixation. DISCHARGE DIAGNOSES: 1. Infected distal fibular plate, right ankle, status post open reduction internal fixation. 2. Diabetes. 3. High cholesterol. 4. Hypertension. 5. Bipolar disorder. 6. Anxiety. HOSPITAL COURSE: The patient is a 41-year-old female who underwent open reduction and internal fixation in October 2015 for a right ankle fracture. She developed cellulitis roughly 6 weeks after surgery and was treated, but had a recurrent cellulitis and wound infection. Due to the fact that she did not improve completely despite antibiotic therapy, it was felt that she would benefit from hardware removal due to the recurrence of her infections. She elected to proceed with surgical intervention and was taken to the operating room under the care of Dr. Alexander on the date of 04/20/16. She tolerated the procedure well and left the operating room in stable condition. Postoperatively, Medical Service was consulted to manage her medical problems including hypertension and diabetes. She had no postoperative complications and progressed satisfactorily bearing weight as tolerated on the right lower extremity. Unfortunately, she was unable to receive a PICC line on postoperative day #1; therefore, had to wait until the 22 of April in order to have this completed to allow her to be discharged to home on IV antibiotics as outlined by Dr. Conde, who also evaluated the patient. It was felt that she should be discharged on cefazolin 2 g every 8 hours for the next 40 days. PICC line was placed on the . Her pain was under excellent control and she was found to be stable for discharge to home. CONDITION ON DISCHARGE: The patient is afebrile. Her vital signs are stable. Her dressings were taken down with a [id number] amount of old bloody drainage, 4x4s, new Telfa 4x4s, and Jun wrap applied to the ankle wound. PLAN: Discharge to home. She was provided with prescriptions of Dilaudid 2 mg to take every 4 hours as needed for pain. The patient states she is only needing this medication at night. She prefers ibuprofen 600 mg 4 times daily as needed during the day. A prescription of 90 pills with 1 refill of the ibuprofen was also provided and sent to her pharmacy in [place]. She was sent home with a different insulin regimen per the Medical Service to better control her sugars. Recommend a followup in 10 [address] Alexander. She will keep the ankle wound clean and dry until seeing him for suture removal. If she develops increased pain, fever, chills, other constitutional symptoms, the office will be contacted prior to her scheduled appointment. ARTIS MERCADO [id number]/[facility] #: [id number] [place]
== END 2016-04-22 13:50 | disposition home health service (06) | DRG 313 ==
LOC: OR 09:37 → SSU 10:00 → INTOOBSV 12:48 → OBSVTOIN 04-21 10:00
PROVIDERS: ADMIT Orthopaedic Surgery; ATTEND Orthopaedic Surgery
PROC: 0QBJ0ZZ Excision of Right Fibula, Open Approach (ICD-10-PCS; 2016-04-20)
PROC: 0QPJ04Z Removal of Internal Fixation Device from Right Fibula, Open Approach (ICD-10-PCS; principal; 2016-04-20 12:00)
PROC: 02HV33Z Insertion of Infusion Device into Superior Vena Cava, Percutaneous Approach (ICD-10-PCS; 2016-04-22)
DX: T84.624A Infection and inflammatory reaction due to internal fixation device of right fibula, initial encounter (principal); M86.671 Other chronic osteomyelitis, right ankle and foot; E11.69 Type 2 diabetes mellitus with other specified complication; E11.65 Type 2 diabetes mellitus with hyperglycemia; L03.115 Cellulitis of right lower limb; Y79.3 Surgical instruments, materials and orthopedic devices (including sutures) associated with adverse incidents; I10 Essential (primary) hypertension; E78.5 Hyperlipidemia, unspecified; F41.8 Other specified anxiety disorders; F31.9 Bipolar disorder, unspecified; E66.9 Obesity, unspecified; F17.210 Nicotine dependence, cigarettes, uncomplicated; B95.61 Methicillin susceptible Staphylococcus aureus infection as the cause of diseases classified elsewhere; Z68.32 Body mass index [BMI] 32.0-32.9, adult; Z88.0 Allergy status to penicillin; Z88.5 Allergy status to narcotic agent; Z82.49 Family history of ischemic heart disease and other diseases of the circulatory system; Z83.3 Family history of diabetes mellitus; Z80.51 Family history of malignant neoplasm of kidney; Z80.9 Family history of malignant neoplasm, unspecified
CPT/HCPCS: 36415; 80048; 81025; 82565; 83036; 84520; 85025; 85652; 86140; 86703; 87070; 87073; 87077; 87186; 87205; 87640; 87641; 88300; 88304; 88311; A9270-GY; C1751; G0378; J0690; J1650; J2001; J2270; J2704; J3010; J3370

== ENCOUNTER 2016-12-09 10:46 | Emergency (ER) | payer OTHER ==
[2016-12-09 12:52] VITALS: BP 143/86
--- NOTE | 2016-12-09 13:04 | UC ---
Eye Complaint HPI - HPI Summary HPI Summary: Pt presents with swelling of left lower eyelid x 5 days. Pt sates has been applying warm soaks with some drainage. States continues to be swollen and painful so came for eval. No fevers, chills. No facial swelling. No analgesia taken. No ACE. No vision changes. Wear glasses, no contact Pt's medications reviewed this visit - History of Current Complaint Chief Complaint: UCEye Stated Complaint: LEFT EYE COMPLAINT Time Seen by Provider: 12/09/16 12:55 Hx Obtained From: Patient Hx Last Menstrual Period: 11/14/16 ?: No Onset/Duration: Gradual Onset, Lasting Days Timing: Constant Severity Initially: Mild Severity Currently: Mild Location of Injury: Eye Lid (lower) Character: Foreign Body Sensation Aggravating Factor(s): Blinking Alleviating Factor(s): Other - wet soaks - Allergies/Home Medications Allergies/Adverse Reactions: Allergies Allergy/AdvReac Type Severity Reaction Status Date / Time Oxycodone Allergy Severe INTERACTS Verified 12/09/16 12:43 WITH BIPOLAR MEDICATIONS Penicillins Allergy Severe Swelling Verified 12/09/16 12:43 Of Face,Lips,& Throat Home Medications: Home Medications DULoxetine DR CAP* [Cymbalta CAP*] 60 mg PO DAILY 12/09/16 [History Confirmed ] PMH/Surg Hx/FS Hx/Imm Hx Previously Healthy: Yes Other History Of: Anticoagulant Therapy - She takes one baby aspirin a day for "low cholesterol." Negative For: HIV, Hepatitis B, Hepatitis C - Surgical History Surgical History: Yes Surgery Procedure, Year, and Place: 10/2015 RIGHT ANKLE ORIF, [facility] - Family History Known Family History: Positive: Cardiac Disease, Hypertension - Social History Occupation: Employed Full-time Lives: With Family Alcohol Use: Rare Substance Use Type: None Smoking Status (MU): Heavy Every Day Tobacco Smoker Type: Cigarettes Amount Used/How Often: 1 PPD FOR ABOUT 26 YEARS Length of Time of Smoking/Using Tobacco: 26 YEARS Have You Smoked in the Last Year: Yes - Immunization History Most Recent Influenza Vaccination: UTD Most Recent Tetanus Shot: UTD Most Recent Pneumonia Vaccination: has had in past Review of Systems Constitutional: Negative Skin: Negative Eyes: Drainage - lower lid left Respiratory: Negative All Other Systems Reviewed And Are Negative: Yes Physical Exam Triage Information Reviewed: Yes Appearance: Well-Appearing, No Pain Distress, Well-Nourished Vital Signs: Initial Vital Signs Temp 98.4 F 12/09/16 12:47 Pulse 115 12/09/16 12:47 Resp 20 12/09/16 12:47 BP 143/86 12/09/16 12:47 Pulse Ox 100 12/09/16 12:47 Vital Signs Reviewed: Yes Eye Exam: Normal Eyes: Positive: Other: - MALGORZATA. EOM intact and full + stye/edema left lower lid no active drainage no conjunctival injection No photophobia ENT Exam: Normal Dental Exam: Normal Neck exam: Normal Respiratory Exam: Normal Respiratory: Positive: Chest non-tender, Lungs clear, Normal breath sounds, No respiratory distress, No accessory muscle use Cardiovascular Exam: Normal Cardiovascular: Positive: RRR, No Murmur, Pulses Normal Abdominal Exam: Normal Abdomen Description: Positive: Nontender, No Organomegaly, Soft Bowel Sounds: Positive: Present Musculoskeletal Exam: Normal Musculoskeletal: Positive: Strength Intact Neurological Exam: Normal Neurological: Positive: Alert, Muscle Tone Normal Psychological Exam: Normal Skin Exam: Normal Eye Complaint Course/Dx - Course Course Of Treatment: Pt with stye on left lower lid. No facial cellulitis. Exam otherwise non concerning. Will give emycin ointment. continue soaks. pt comfortable with plan - Differential Dx/Diagnosis Provider Diagnoses: stye left eye Discharge - Discharge Plan Condition: Stable Disposition: HOME Prescriptions: Erythromycin OPTH OINT* [Erythromycin 0.5% OPTH OINT*] 1 applic LEFT EYE TID #1 ophth.oint Patient Education Materials: ye (ED) Forms: *Work Release Referrals: Miriam Randolph PA [Primary Care Provider] - Additional Instructions: - apply warm soaks to your eye, for 20 minutes, 2-3 times a day - apply eye ointment 3 times a day x 5 days - okay to alternate ibuprofen (advil, motrin) and tylenol every 3 hours for pain - contact your doctor or eye doctor to schedule a follow-up appointment as needed.
== END 2016-12-09 13:31 | disposition home or self-care (01) ==
LOC: UCCORT 10:46
DX: H00.016 Hordeolum externum left eye, unspecified eyelid (principal); F17.210 Nicotine dependence, cigarettes, uncomplicated; Z88.6 Allergy status to analgesic agent; Z88.0 Allergy status to penicillin
CPT/HCPCS: 99212; G0463